=== PATIENT | female | born 1955 | race Caucasian/White ===

== ENCOUNTER 2017-07-30 10:10 | Day surgery (SDC) | payer OTHER ==
[2017-07-30] MEDS ORDERED: LIDOCAINE 4% SOLUTION 50 ML BTL (10:52)
[2017-07-30] MEDS ORDERED: MIDAZOLAM 1 MG/ML 2 ML INJ ×2 (12:37)
[2017-07-30] MEDS ORDERED: FENTAnyl 50 MCG/ML VIAL (12:37)
== END 2017-07-30 19:11 | disposition home or self-care (01) ==
LOC: GIL 10:10
DX: Z12.11 Encounter for screening for malignant neoplasm of colon (principal); K31.7 Polyp of stomach and duodenum; K21.0 Gastro-esophageal reflux disease with esophagitis; K57.90 Diverticulosis of intestine, part unspecified, without perforation or abscess without bleeding; K64.4 Residual hemorrhoidal skin tags; E78.00 Pure hypercholesterolemia, unspecified
CPT/HCPCS: 43239; 88305; 88312

== ENCOUNTER 2017-09-01 15:15 | Day surgery (SDC) | payer OTHER ==
[~2017-09-01 15:15] MED LIST: CEFAZOLIN 1 GM/50 ML (PMX) 50 ML IVPB; SOD CHLORIDE 0.9% 1,000 ML IV
[2017-09-01 16:49] LABS: ADD MAN DIFF? NO
[2017-09-01 16:53] LABS: WHITE BLOOD COUNT 8.1 10^3/ul (4.8-10.8)
[2017-09-01 16:53] LABS: BASOPHIL # 0.1 10^3/ul (0.0-0.1); EOSINOPHILS # 0.2 10^3/ul (0.0-0.5); EOSINOPHILS % 2.8 % (0.0-7.0); HEMOGLOBIN 13.3 g/dl (12.0-16.0); LYMPHOCYTES # 3.1 10^3/ul (0.8-2.9); LYMPHOCYTES % 37.9 % (15.0-51.0); MEAN CORPUSCULAR HEMOGLOBIN 28.9 pg (29.0-33.0); MEAN CORPUSCULAR HGB CONC 34.1 g/dl (32.0-37.0); MEAN CORPUSCULAR VOLUME 84.8 fl (82.0-101.0); MEAN PLATELET VOLUME 11.5 fl (7.4-10.4); MONOCYTE # 0.6 10^3/ul (0.3-0.9); MONOCYTES % 7.5 % (0.0-11.0); NEUTROPHIL # 4.1 10^3/ul (1.6-7.5); NEUTROPHILS % 50.4 % (39.0-77.0); PLATELET COUNT 301 10^3/UL (140-415); RED CELL DISTRIBUTION WIDTH 14.4 % (11.5-14.5)
[2017-09-01 16:56] LABS: INR 0.95; PROTIME 12.8 Sec (11.9-14.9)
[2017-09-01 16:57] LABS: PARTIAL THROMBOPLASTIN TIME 28.7 Sec (25.0-35.0)
[2017-09-01 16:58] LABS: ALANINE AMINOTRANSFERASE 34 IU/L (13-69); ALBUMIN 4.1 g/dl (3.3-4.9); ALBUMIN/GLOBULIN RATIO 1.32; ALKALINE PHOSPHATASE 77 IU/L (42-121); ANION GAP 13 (8-16); ASPARTATE AMINO TRANSFERASE 30 IU/L (15-46); BILIRUBIN,INDIRECT 0.4 mg/dl (0-1.1); BILIRUBIN,TOTAL 0.4 mg/dl (0.2-1.3); CARBON DIOXIDE 26 mmol/L (21-31); CHLORIDE 106 mmol/L (97-110); GLUCOSE 98 mg/dl (70-220); TOTAL PROTEIN 7.2 g/dl (6.1-8.1)
[2017-09-01 17:03] LABS: BLOOD UREA NITROGEN 13 mg/dl (7-20); CREATININE 0.67 mg/dl (0.44-1.00); POTASSIUM 3.8 mmol/L (3.5-5.1); SODIUM 141 mmol/L (135-144)
[2017-09-01] MEDS ORDERED: OXYCODONE/ACETAMINOPHEN (5/325) TAB PO (17:30)
[2017-09-01] MEDS ORDERED: HYDROmorphONE (0.2 MG/ML) 10ML SYG IV ×3 (17:30)
[2017-09-01] MEDS ORDERED: ONDANSETRON 4 MG INJ IV (17:30)
[2017-09-01] MEDS ORDERED: FENTAnyl 50 MCG/ML VIAL (17:50)
[2017-09-01] MEDS ORDERED: CEFAZOLIN 1 GM INJ (17:50)
[2017-09-01] MEDS ORDERED: ONDANSETRON 4 MG INJ (17:50)
[2017-09-01] MEDS ORDERED: PROPOFOL 20 ML (17:50)
[2017-09-01] MEDS: BUPIVACAINE 0.5% (SDV) 30 ML INJ (18:23)
[2017-09-01] MEDS: LIDOCAINE 2% (MDV) 20 ML INJ (18:23)
[2017-09-01] MEDS ORDERED: HYDROCODONE/APAP (5/325) TAB PO (19:00)
[2017-09-01] MEDS: OXYCODONE/ACETAMINOPHEN (5/325) TAB PO (19:13)
== END 2017-09-01 21:02 | disposition home or self-care (01) ==
LOC: SDS 15:15
DX: D17.1 Benign lipomatous neoplasm of skin and subcutaneous tissue of trunk (principal); D17.23 Benign lipomatous neoplasm of skin and subcutaneous tissue of right leg; E78.5 Hyperlipidemia, unspecified
CPT/HCPCS: 14001; 80053; 85025; 85610; 85730; 88307